=== PATIENT | female | born 1975 | race Caucasian/White ===

== ENCOUNTER → 2016-04-10 | Outpatient (CLI) | payer BC ==
[2016-04-10 12:10] LABS: ANION GAP 8 MEQ/L (8-16); BLOOD UREA NITROGEN 12 MG/DL (7-18); CALCIUM LEVEL 8.7 MG/DL (8.5-10.1); CARBON DIOXIDE LEVEL 32 MEQ/L (21-32); CHLORIDE LEVEL 104 MEQ/L (98-107); CHOLESTEROL LEVEL 182 MG/DL (<200); FREE T4 1.06 NG/DL (0.76-1.46); GLOMERULAR FILTRATION RATE > 60.0 (>58); GLUCOSE, FASTING 87 MG/DL (70-105); POTASSIUM SERUM 3.1 MEQ/L (3.5-5.1); SODIUM LEVEL 144 MEQ/L (136-145); TRIGLYCERIDES LEVEL 168 MG/DL (<150)
== END ==
LOC: M LAB 10:56
PROVIDERS: ATTEND Physician Assistant
DX: I10 Essential (primary) hypertension (principal); E55.9 Vitamin D deficiency, unspecified

== ENCOUNTER → 2016-05-15 | Outpatient (CLI) | payer BC ==
[2016-05-15 13:44] LABS: ANION GAP 10 MEQ/L (8-16); BLOOD UREA NITROGEN 11 MG/DL (7-18); CALCIUM LEVEL 8.7 MG/DL (8.5-10.1); CARBON DIOXIDE LEVEL 31 MEQ/L (21-32); CHLORIDE LEVEL 101 MEQ/L (98-107); CREATININE FOR GFR 1.06 MG/DL (0.55-1.02); GLOMERULAR FILTRATION RATE > 60.0 (>58); GLUCOSE, FASTING 94 MG/DL (70-105); MAGNESIUM LEVEL 2.2 MG/DL (1.8-2.4); POTASSIUM SERUM 3.3 MEQ/L (3.5-5.1); SODIUM LEVEL 142 MEQ/L (136-145)
== END ==
LOC: M SMT 08:39
PROVIDERS: ATTEND Family Medicine
DX: E87.6 Hypokalemia (principal)

== ENCOUNTER → 2016-08-15 | Outpatient (CLI) | payer BC ==
[~2016-08-15] MED LIST: ALBU17IN INH; BREO1INH INH; COLA100C3 PO; CYCL5TA PO; D 1010004 PO; DRIS50002 PO; ERGO500014 PO; ESOM0.1C PO; HYDR12.55 PO; HYDR25TA6 PO; IBUP-1114 PO; IBUP600T26 PO; K-TA1TAB PO; LEXA1TAB PO; OMEP20.64 PO; OXYC1TAB23 PO; TRAM50TA2 PO; ZYRT10CA PO
[2016-08-15 10:18] LABS: BASO # 0.1 K/mm3 (0.0-0.2); BASO % 0.8 % (0.0-1.0); EOS # 0.4 K/mm3 (0.0-0.50); EOS % 3.8 % (0.0-3.0); LARGE UNSTAINED CELL # 0.2 K/mm3 (0.0-0.4); LARGE UNSTAINED CELL % 1.7 % (0.0-4.0); LYMPH # 2.3 K/mm3 (1.5-4.5); MEAN CORPUSCULAR HEMOGLOBIN 29.2 pg (27.0-33.0); MEAN CORPUSCULAR HGB CONC 33.8 g/dl (32.0-36.5); MEAN CORPUSCULAR VOLUME 86.4 fl (80.0-96.0); MONO # 0.5 K/mm3 (0.0-0.8); MONO % 5.4 % (0.0-5.0); NEUTROPHILS % 65.2 % (36.0-66.0); PLATELET COUNT, AUTOMATED 327 k/mm3 (150-450); RED CELL DISTRIBUTION WIDTH 13.1 % (11.5-14.5); WHITE BLOOD COUNT 9.2 K/mm3 (4.0-10.0)
[2016-08-15 10:22] LABS: INR 0.89
[2016-08-15 11:21] LABS: ANION GAP 8 MEQ/L (8-16); BLOOD UREA NITROGEN 13 MG/DL (7-18); CALCIUM LEVEL 8.7 MG/DL (8.5-10.1); CARBON DIOXIDE LEVEL 30 MEQ/L (21-32); CHLORIDE LEVEL 103 MEQ/L (98-107); CREATININE FOR GFR 0.88 MG/DL (0.55-1.02); GLOMERULAR FILTRATION RATE > 60.0 (>58); GLUCOSE, FASTING 93 MG/DL (70-105); POTASSIUM SERUM 3.6 MEQ/L (3.5-5.1); SODIUM LEVEL 141 MEQ/L (136-145)
--- NOTE | 2016-08-15 20:52 | ECGEPIP ---
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
== END ==
LOC: M LAB 09:42
PROVIDERS: ATTEND Physician Assistant
DX: Z01.818 Encounter for other preprocedural examination (principal)

== ENCOUNTER 2016-08-21 09:27 | Day surgery (SDC) | payer BC ==
[2016-08-21] VITALS (7 sets, daily range): BP systolic 103–132; BP diastolic 56–76
[~2016-08-21] VITALS: Ht 172.7 cm; Wt 136.5 kg
[~2016-08-21 09:27] MED LIST changes: -HYDR12.55 PO; +HYDROmorphone HCL 2 MG/ML 1ML VIAL (J1170) As Ordered ONE; +MIDAZOLAM INJ 2 MG/2 ML VIAL (J2250) As Ordered ONE; -OMEP20.64 PO; +ONDANSETRON 4MG/2ML VIAL (J2405) As Ordered ONE; +PROPOFOL 200 MG/20 ML VIAL As Ordered ONE; +ROCURONIUM BROMIDE 50 MG/5 ML VIAL As Ordered ONE; +SUCCINYLCHOLINE 100 MG/5 ML SYRINGE (J0330) As Ordered ONE; +dexameTHASONE 4 MG/ML 1ML VIAL (J1100) As Ordered ONE; +fentaNYL 100 MCG/2 ML INJECTION (J3010) As Ordered ONE
[2016-08-21] MEDS ORDERED: LR 1,000 ML IV ONE (09:45)
[2016-08-21] MEDS ORDERED: LR 1,000 ML IV SCH ×2 (09:45→16:00)
[2016-08-21 10:08] LABS: MEAN CORPUSCULAR HEMOGLOBIN 28.9 pg (27.0-33.0); MEAN CORPUSCULAR HGB CONC 33.5 g/dl (32.0-36.5); MEAN CORPUSCULAR VOLUME 86.5 fl (80.0-96.0); RED CELL DISTRIBUTION WIDTH 13.1 % (11.5-14.5); WHITE BLOOD COUNT 8.3 K/mm3 (4.0-10.0)
[2016-08-21 10:24] LABS: CONTROL LINE HCG INT CTR LINE PRESENT
[2016-08-21] MEDS ORDERED: HYDR12.55 PO (11:00)
[2016-08-21] MEDS ORDERED: OMEP20.64 PO (11:00)
[2016-08-21] MEDS ORDERED: METHYLENE BLUE 0.5% (5MG/ML) 10 ML AMP (PROVAYBLUE)(Q9968 PER 1MG) As Ordered ONE (11:16)
[2016-08-21] MEDS ORDERED: BUPIVACAINE HCL 0.25% 30 ML VIAL As Ordered ONE (11:16)
[2016-08-21] MEDS ORDERED: SCOPOLAMINE 1.5 MG TRANSDERMAL As Ordered ONE (11:18)
[2016-08-21] MEDS ORDERED: SCOPOLAMINE 1.5 MG TRANSDERMAL TOP ONE (11:30)
[2016-08-21] MEDS ORDERED: fentaNYL 100 MCG/2 ML INJECTION (J3010) As Ordered ONE ×2 (11:40→15:20)
[2016-08-21] MEDS ORDERED: ROCURONIUM BROMIDE 50 MG/5 ML VIAL As Ordered ONE (11:59)
[2016-08-21] MEDS ORDERED: NEOSTIGMINE 1MG/ML 5 ML SYRINGE (J2710) As Ordered ONE (12:00)
[2016-08-21] MEDS ORDERED: KETOROLAC 60 MG/2 ML VIAL (J1885) As Ordered ONE (12:00)
[2016-08-21] MEDS ORDERED: GLYCOPYRROLATE INJ 0.2 MG/ML 2 ML VIAL As Ordered ONE (12:00)
[2016-08-21] MEDS ORDERED: SEVOFLURANE INHAL SOLN 250 ML BTL As Ordered ONE (12:30)
[2016-08-21] MEDS ORDERED: MORPHINE 4 MG/ML 1ML SYRINGE IV PRN (15:15)
[2016-08-21] MEDS ORDERED: PERCOCET 5MG/325MG TAB PO PRN (15:15)
[2016-08-21] MEDS ORDERED: PROMETHAZINE INJ 25 MG/ML VIAL (J2550) IV PRN (15:15)
[2016-08-21] MEDS ORDERED: ONDANSETRON 4MG/2ML VIAL (J2405) IV PRN ×2 (15:15→16:15)
[2016-08-21] MEDS: fentaNYL 100 MCG/2 ML INJECTION (J3010) IV PRN ×4 (15:24→15:40)
[2016-08-21] MEDS ORDERED: METOCLOPRAMIDE INJ 10MG/2ML VIAL (J2765) As Ordered ONE (15:41)
[2016-08-21] MEDS ORDERED: MORPHINE 2 MG/ML 1ML SYRINGE IV PRN (16:00)
[2016-08-21] MEDS ORDERED: METOCLOPRAMIDE INJ 10MG/2ML VIAL (J2765) IV PRN (16:15)
[2016-08-21] MEDS: LR 1,000 ML IV SCH (17:39)
[2016-08-21] MEDS: KETOROLAC 30 MG/ML VIAL (J1885) IV SCH (18:40)
[2016-08-21] MEDS ORDERED: ESCITALOPRAM OXALATE 5MG TABLET (LEXAPRO) PO SCH (21:00)
[2016-08-21] MEDS ORDERED: hydroCHLOROthiazide 25 MG TAB PO SCH (21:00)
[2016-08-21] MEDS: DOCUSATE SODIUM 100 MG CAP PO SCH (21:01)
[2016-08-21] MEDS: PERCOCET 5MG/325MG TAB PO PRN (21:02)
[2016-08-22] VITALS: BP 111/73
[2016-08-22] MEDS: LR 1,000 ML IV SCH (00:34)
[2016-08-22] MEDS: PERCOCET 5MG/325MG TAB PO PRN ×3 (00:57→09:17)
[2016-08-22 04:00] VITALS: BP 125/67
[2016-08-22] MEDS: KETOROLAC 30 MG/ML VIAL (J1885) IV SCH ×2 (06:02)
[2016-08-22 08:00] VITALS: BP 131/68
[2016-08-22 08:19] LABS: BASO % 0.3 % (0.0-1.0); EOS # 0.1 K/mm3 (0.0-0.50); EOS % 0.8 % (0.0-3.0); LARGE UNSTAINED CELL # 0.2 K/mm3 (0.0-0.4); LARGE UNSTAINED CELL % 1.2 % (0.0-4.0); LYMPH # 2.1 K/mm3 (1.5-4.5); LYMPH % 13.3 % (24.0-44.0); MEAN CORPUSCULAR HEMOGLOBIN 29.1 pg (27.0-33.0); MEAN CORPUSCULAR HGB CONC 33.2 g/dl (32.0-36.5); MEAN CORPUSCULAR VOLUME 87.8 fl (80.0-96.0); MONO # 0.7 K/mm3 (0.0-0.8); MONO % 4.9 % (0.0-5.0); NEUTROPHILS # 11.6 K/mm3 (1.8-7.7); NEUTROPHILS % 79.5 % (36.0-66.0); PLATELET COUNT, AUTOMATED 316 k/mm3 (150-450); WHITE BLOOD COUNT 14.6 K/mm3 (4.0-10.0)
[2016-08-22 09:17] VITALS: BP 131/68
[2016-08-22] MEDS: DOCUSATE SODIUM 100 MG CAP PO SCH (09:17)
[2016-08-22] MEDS ORDERED: IBUPROFEN 800 MG TAB PO SCH (14:00)
== END 2016-08-22 10:20 | disposition home or self-care (01) ==
LOC: M SDC 09:27 → M PED 16:23 → M SDC 08-22 10:20
PROVIDERS: ATTEND Obstetrics & Gynecology
DX: N93.9 Abnormal uterine and vaginal bleeding, unspecified (principal); R10.2 Pelvic and perineal pain; I10 Essential (primary) hypertension; K21.9 Gastro-esophageal reflux disease without esophagitis; M51.9 Unspecified thoracic, thoracolumbar and lumbosacral intervertebral disc disorder; F32.9 Major depressive disorder, single episode, unspecified; J45.909 Unspecified asthma, uncomplicated; J30.2 Other seasonal allergic rhinitis; R06.83 Snoring; Z79.899 Other long term (current) drug therapy
CPT/HCPCS: 36415; 58571; 84703; 85025; 85027; 86850; 86900; 86901; 88309; A6024; J0330; J0690; J1100; J1170; J1885; J2250; J2405; J2710; J2765; J3010; Q9968

== ENCOUNTER → 2017-01-23 | Outpatient (REF) | payer BC ==
[~2017-01-23] MED LIST changes: -COLA100C3 PO; +COLA100C5 PO; -CYCL5TA PO; +CYCL5TAB PO; +HYDR12.55 PO; -HYDROmorphone HCL 2 MG/ML 1ML VIAL (J1170) As Ordered ONE; +IBUP-1022 PO; -IBUP600T26 PO; -MIDAZOLAM INJ 2 MG/2 ML VIAL (J2250) As Ordered ONE; +OMEP1CAP77 PO; -ONDANSETRON 4MG/2ML VIAL (J2405) As Ordered ONE; -PROPOFOL 200 MG/20 ML VIAL As Ordered ONE; -ROCURONIUM BROMIDE 50 MG/5 ML VIAL As Ordered ONE; -SUCCINYLCHOLINE 100 MG/5 ML SYRINGE (J0330) As Ordered ONE; -dexameTHASONE 4 MG/ML 1ML VIAL (J1100) As Ordered ONE; -fentaNYL 100 MCG/2 ML INJECTION (J3010) As Ordered ONE
[2017-01-23 13:51] LABS: BASO # 0.1 10^3/uL (0.0-0.2); BASO % 0.6 % (0.0-1.0); EOS # 0.2 10^3/uL (0.0-0.50); EOS % 2.3 % (0.0-3.0); IMMATURE GRANULOCYTE % 0.1 % (0-0); LYMPH # 3.5 10^3/uL (1.5-4.5); LYMPH % 38.3 % (24.0-44.0); MEAN CORPUSCULAR HEMOGLOBIN 28.5 pg (27.0-33.0); MEAN CORPUSCULAR HGB CONC 32.2 g/dl (32.0-36.5); MEAN CORPUSCULAR VOLUME 88.7 fl (80.0-96.0); MONO # 0.7 10^3/uL (0.0-0.8); MONO % 7.4 % (0.0-5.0); NEUTROPHILS # 4.8 10^3/uL (1.8-7.7); NEUTROPHILS % 51.3 % (36.0-66.0); PLATELET COUNT, AUTOMATED 377 10^3/uL (150-450); RED CELL DISTRIBUTION WIDTH 12.6 % (11.5-14.5); WHITE BLOOD COUNT 9.3 10^3/uL (4.0-10.0)
[2017-01-23 14:15] LABS: ANION GAP 6 MEQ/L (8-16); BLOOD UREA NITROGEN 9 MG/DL (7-18); CARBON DIOXIDE LEVEL 32 MEQ/L (21-32); CHLORIDE LEVEL 103 MEQ/L (98-107); CREATININE FOR GFR 0.92 MG/DL (0.55-1.02); FREE T4 1.03 NG/DL (0.76-1.46); GLOMERULAR FILTRATION RATE > 60.0 (>58); GLUCOSE, FASTING 72 MG/DL (70-105); SODIUM LEVEL 141 MEQ/L (136-145)
== END ==
LOC: M LABDRWAD 13:29
PROVIDERS: ATTEND Physician Assistant
DX: I10 Essential (primary) hypertension (principal)

== ENCOUNTER → 2018-04-02 | Outpatient (REF) | payer BC ==
[~2018-04-02] MED LIST changes: -DRIS50002 PO; +DRIS50003 PO
[2018-04-02 11:52] LABS: INR 0.91; PROTHROMBIN TIME 12.3 SECONDS (12.1-14.4)
[2018-04-02 12:21] LABS: PARTIAL THROMBOPLASTIN TIME 37.7 SECONDS (25.4-37.6)
== END ==
LOC: M LABDRAW1 11:25
PROVIDERS: ATTEND Physical Medicine & Rehabilitation
DX: Z79.01 Long term (current) use of anticoagulants (principal)

== ENCOUNTER → 2018-04-21 | Outpatient (CLI) | payer BC ==
[2018-04-21 10:38] LABS: ALBUMIN 3.8 GM/DL (3.2-5.2); BILIRUBIN,TOTAL 0.3 MG/DL (0.2-1.0); CALCIUM LEVEL 9.8 MG/DL (8.5-10.1); CHOLESTEROL RISK RATIO 4.152 (<5); CREATININE FOR GFR 1.12 MG/DL (0.55-1.30); FREE T4 1.01 NG/DL (0.76-1.46); GLOMERULAR FILTRATION RATE 56.5 (>58); THYROID STIMULATING HORMONE 0.543 uIU/ML (0.358-3.740); TOTAL PROTEIN 7.6 GM/DL (6.4-8.2)
[2018-04-21 11:50] LABS: TOTAL 25(OH) VITAMIN D 32.2 NG/ML (30.0-100.0)
== END ==
LOC: M LAB 08:53
PROVIDERS: ATTEND Physician Assistant
DX: I10 Essential (primary) hypertension (principal)

== ENCOUNTER 2018-11-21 11:11 | Emergency (ER) | payer BC ==
[~2018-11-21] VITALS: Ht 172.7 cm; Wt 128.7 kg
[~2018-11-21 11:11] MED LIST changes: -ERGO500014 PO; +VITA500045 PO
[2018-11-21] MEDS ORDERED: BREO1INH PO (11:39)
[2018-11-21] MEDS ORDERED: BUPR150T3 PO (11:39)
[2018-11-21] MEDS ORDERED: SIME180C PO (11:39)
[2018-11-21] MEDS ORDERED: MULT1TAB8 PO (11:39)
[2018-11-21] MEDS ORDERED: LOPE1CAP5 PO (11:39)
[2018-11-21] MEDS ORDERED: FLON1SPR NARES (11:39)
[2018-11-21] MEDS ORDERED: TOLT2CAP4 PO (11:39)
[2018-11-21] MEDS ORDERED: CHOL100029 PO (11:39)
[2018-11-21] MEDS ORDERED: ESTR125TA PO (11:39)
[2018-11-21 11:43] LABS: BASO % 0.5 % (0.0-1.0); EOS # 0.1 10^3/uL (0.0-0.5); EOS % 1.9 % (0.0-3.0); HEMATOCRIT 42.8 % (36.0-47.0); HEMOGLOBIN 14.2 g/dl (12.0-15.5); LYMPH # 1.7 10^3/uL (1.5-5.0); LYMPH % 26.2 % (24.0-44.0); MEAN CORPUSCULAR HEMOGLOBIN 28.9 pg (27.0-33.0); MEAN CORPUSCULAR HGB CONC 33.2 g/dl (32.0-36.5); MONO # 0.7 10^3/uL (0.0-0.8); MONO % 11.2 % (0.0-5.0); NEUTROPHILS # 3.9 10^3/uL (1.5-8.5); NEUTROPHILS % 59.9 % (36.0-66.0); PLATELET COUNT, AUTOMATED 351 10^3/uL (150-450); RED BLOOD COUNT 4.92 10^6/uL (4.00-5.40); WHITE BLOOD COUNT 6.4 10^3/uL (4.0-10.0)
[2018-11-21] MEDS ORDERED: ONDANSETRON 4MG/2ML VIAL (J2405) IV ONE (12:00)
[2018-11-21] MEDS ORDERED: NS 1,000 ML IV ONE ×2 (12:00→14:00)
[2018-11-21 12:05] LABS: ALBUMIN 3.4 GM/DL (3.2-5.2); ALT/SGPT 298 U/L (12-78); BILIRUBIN,DIRECT 0.3 MG/DL (0.0-0.2); BILIRUBIN,TOTAL 0.7 MG/DL (0.2-1.0); BLOOD UREA NITROGEN 6 MG/DL (7-18); CALCIUM LEVEL 8.7 MG/DL (8.5-10.1); CARBON DIOXIDE LEVEL 29 MEQ/L (21-32); CHLORIDE LEVEL 108 MEQ/L (98-107); CREATININE FOR GFR 0.92 MG/DL (0.55-1.30); GLOMERULAR FILTRATION RATE > 60.0 (>58); GLUCOSE, FASTING 97 MG/DL (70-100); LIPASE 159 U/L (73-393); POTASSIUM SERUM 3.5 MEQ/L (3.5-5.1); SODIUM LEVEL 143 MEQ/L (136-145); TOTAL PROTEIN 6.7 GM/DL (6.4-8.2)
[2018-11-21] MEDS ORDERED: ISOVUE-370 76% 100ML VIAL (Q9967) As Ordered ONE (13:54)
[2018-11-21] MEDS ORDERED: POTASSIUM CHLORIDE 10 MEQ SR TABLET PO ONE (14:00)
[2018-11-21] MEDS ORDERED: KCL 10MEQ/100ML SWI (KRUN) 10 MEQ in IV 1 EA IV ONE (14:00)
--- NOTE | 2018-11-21 14:26 | REP ---
Clinical: Abdominal pain and diarrhea. Technique: Axial contrast enhanced images from the lung bases to the pubic symphysis with coronal and sagittal re-formations using 100 ml Isovue 370 intravenous contrast material. Delayed images of the abdomen obtained. Comparison: None. Findings: The lung bases are clear. Visualized heart and pericardium normal. The liver demonstrates innumerable hypodense lesions measuring up to approximately 5 cm and consistent with a previous diagnosis of benign hemangiomas. Spleen, pancreas, bilateral adrenal glands are normal. Kidneys demonstrate subcentimeter hypodensities suggesting cysts and 2 mm nonobstructing left renal calculus without perinephric stranding or hydronephrosis. Evidence of prior cholecystectomy. The enteric system is without obstruction or acute inflammatory process although fluid-filled loops of small large bowel are noted which may reflect a mild enterocolitis. Pelvis demonstrates normal bladder and evidence for prior hysterectomy. No ascites. No free air. No adenopathy. Abdominal aorta without aneurysm or dissection. Musculoskeletal structures demonstrate age-related changes without focal abnormality. Impression: 1. Multiple hepatic hemangiomas similar to prior MRI dated 2005. 2. 2 mm nonobstructing left renal calculus and subcentimeter renal cysts. 3. Cannot exclude mild enterocolitis. Electronically Signed by Nathen Hobbs MD 11/21/2018 02:18 P
[2018-11-21] MEDS ORDERED: ONDA4TAB6 PO (15:30)
[2018-11-21 17:11] VITALS: BP 122/73
[2018-11-21] MEDS ORDERED: CIPR-249 PO (17:17)
[2018-11-21] MEDS ORDERED: CIPROFLOXACIN 500 MG TAB PO ONE (18:00)
[2018-11-23 16:00] LABS: HEPATITIS A ANTIBODY IGM NEGATIVE (NEGATIVE); HEPATITIS B CORE ANTIBODY IGM NEGATIVE (NEGATIVE); HEPATITIS B SURFACE ANTIGEN NEGATIVE (NEGATIVE); HEPATITIS C VIRUS ABY INDEX 0.1 INDEX (<0.8)
== END 2018-11-21 17:30 | disposition home or self-care (01) ==
LOC: M ED 11:11
DX: A04.4 Other intestinal Escherichia coli infections (principal); R94.5 Abnormal results of liver function studies; I10 Essential (primary) hypertension; J45.909 Unspecified asthma, uncomplicated; Z79.891 Long term (current) use of opiate analgesic; Z79.899 Other long term (current) drug therapy; Z90.49 Acquired absence of other specified parts of digestive tract; Z86.79 Personal history of other diseases of the circulatory system
CPT/HCPCS: 74177; 80047; 80048; 80076; 81001; 83605; 83690; 85025; 86705; 86709; 86803; 87340; 87507; 96365; 96375; 99284; J2405; Q9967

== ENCOUNTER → 2019-04-30 | Outpatient (CLI) | payer BC ==
[~2019-04-30] MED LIST changes: +BREO1INH PO; +BUPR150T3 PO; +CHOL100029 PO; +CIPR-249 PO; +ESTR125TA PO; +FLON1SPR NARES; +LOPE1CAP5 PO; +MULT1TAB8 PO; +ONDA4TAB6 PO; +SIME180C PO; +TOLT2CAP4 PO
[2019-04-30 16:57] LABS: BASO # 0.1 10^3/uL (0.0-0.2); BASO % 0.7 % (0.0-1.0); EOS # 0.2 10^3/uL (0.0-0.5); EOS % 2.2 % (0.0-3.0); HEMATOCRIT 42.4 % (36.0-47.0); HEMOGLOBIN 13.4 g/dl (12.0-15.5); LYMPH # 2.1 10^3/uL (1.5-5.0); LYMPH % 23.8 % (24.0-44.0); MEAN CORPUSCULAR HEMOGLOBIN 27.8 pg (27.0-33.0); MEAN CORPUSCULAR HGB CONC 31.6 g/dl (32.0-36.5); MONO # 0.6 10^3/uL (0.0-0.8); MONO % 6.8 % (0.0-5.0); NEUTROPHILS # 5.9 10^3/uL (1.5-8.5); NEUTROPHILS % 66.1 % (36.0-66.0); PLATELET COUNT, AUTOMATED 294 10^3/uL (150-450); RED BLOOD COUNT 4.82 10^6/uL (4.00-5.40)
[2019-04-30 17:05] LABS: ALBUMIN 3.4 GM/DL (3.2-5.2); ALT/SGPT 19 U/L (12-78); BILIRUBIN,TOTAL 0.5 MG/DL (0.2-1.0); BLOOD UREA NITROGEN 12 MG/DL (7-18); C REACTIVE PROTEIN QUANTITATIV 1.79 MG/DL (0.00-0.30); CALCIUM LEVEL 8.6 MG/DL (8.5-10.1); CARBON DIOXIDE LEVEL 30 MEQ/L (21-32); CHLORIDE LEVEL 105 MEQ/L (98-107); CHOLESTEROL LEVEL 205 MG/DL (<200); CREATININE FOR GFR 0.88 MG/DL (0.55-1.30); FREE T4 0.98 NG/DL (0.76-1.46); GLOMERULAR FILTRATION RATE > 60.0 (>58); GLUCOSE, FASTING 85 MG/DL (70-100); HDL CHOLESTEROL 50 MG/DL (>40); LDL CHOLESTEROL 128 MG/DL (<100); NON-HDL-C 155 MG/DL; POTASSIUM SERUM 3.9 MEQ/L (3.5-5.1); RHEUMATOID FACTOR QUANT < 10.0 IU/ML (<15.0); SODIUM LEVEL 143 MEQ/L (136-145); TOTAL PROTEIN 6.5 GM/DL (6.4-8.2); TRIGLYCERIDES LEVEL 135 MG/DL (<150)
[2019-04-30 17:12] LABS: HEMOGLOBIN A1c 5.5 %
[2019-04-30 17:45] LABS: ERYTHROCYTE SEDIMENTATION RATE 24 mm/hr (0-20)
[2019-05-04 00:06] LABS: ANA (HEP2) Negative (.); CYCLIC CITRULLINATED PEPTIDE 14 units (0-19)
== END ==
LOC: M ADAMS 12:14
PROVIDERS: ATTEND Physician Assistant
DX: E78.2 Mixed hyperlipidemia (principal); E66.09 Other obesity due to excess calories; A04.0 Enteropathogenic Escherichia coli infection; M54.5 Low back pain; F33.1 Major depressive disorder, recurrent, moderate; R94.5 Abnormal results of liver function studies

== ENCOUNTER → 2019-09-08 | Outpatient (CLI) | payer BC ==
[~2019-09-08] MED LIST changes: +DULO1CAP5 PO; +ESCI10TA2 PO; +GABA-843 PO; +KETO10TAB PO; +KLOR20TA42 PO; +MELO15TA28 PO; +PERC5TAB12 PO
[2019-09-08 10:34] LABS: PLATELET COUNT, AUTOMATED 336 10^3/uL (150-450)
[2019-09-08 10:48] LABS: INR 1.01
[2019-09-08 10:49] LABS: PARTIAL THROMBOPLASTIN TIME 34.1 SECONDS (25.0-38.4)
[2019-09-08 10:58] LABS: COLLAGEN EPINEPHRINE 106 SECONDS (74-162)
== END ==
LOC: M LAB 10:12
PROVIDERS: ATTEND Physical Medicine & Rehabilitation
DX: M47.817 Spondylosis without myelopathy or radiculopathy, lumbosacral region (principal)

== ENCOUNTER 2019-12-03 05:41 | Emergency (ER) | payer BC ==
[~2019-12-03] VITALS: Ht 172.7 cm; Wt 142.2 kg
[~2019-12-03 05:41] MED LIST changes: -DULO1CAP5 PO; -ESCI10TA2 PO; -GABA-843 PO; -KETO10TAB PO; -KLOR20TA42 PO; -MELO15TA28 PO; -PERC5TAB12 PO
[2019-12-03] MEDS ORDERED: ESCI10TA2 PO (06:03)
[2019-12-03] MEDS ORDERED: DULO1CAP5 PO (06:03)
[2019-12-03] MEDS ORDERED: MELO15TA28 PO (06:03)
[2019-12-03] MEDS ORDERED: GABA-843 PO (06:03)
[2019-12-03] MEDS ORDERED: KLOR20TA42 PO (06:03)
[2019-12-03] MEDS ORDERED: KETOROLAC 30 MG/ML 1ML VIAL IV ONE (06:15)
[2019-12-03] MEDS ORDERED: NS 1,000 ML IV ONE (06:15)
[2019-12-03] MEDS ORDERED: ONDANSETRON 4MG/2ML VIAL IV ONE (06:15)
[2019-12-03 06:28] LABS: BASO # 0.1 10^3/uL (0.0-0.2); BASO % 0.4 % (0.0-1.0); EOS # 0.1 10^3/uL (0.0-0.5); EOS % 0.3 % (0.0-3.0); HEMATOCRIT 43.1 % (36.0-47.0); HEMOGLOBIN 13.9 g/dl (12.0-15.5); LYMPH # 1.6 10^3/uL (1.5-5.0); LYMPH % 10.3 % (24.0-44.0); MEAN CORPUSCULAR HEMOGLOBIN 28.7 pg (27.0-33.0); MEAN CORPUSCULAR HGB CONC 32.3 g/dl (32.0-36.5); MONO # 0.7 10^3/uL (0.0-0.8); MONO % 4.7 % (0.0-5.0); NEUTROPHILS # 12.9 10^3/uL (1.5-8.5); NEUTROPHILS % 83.5 % (36.0-66.0); PLATELET COUNT, AUTOMATED 326 10^3/uL (150-450); RED BLOOD COUNT 4.84 10^6/uL (4.00-5.40); WHITE BLOOD COUNT 15.5 10^3/uL (4.0-10.0)
[2019-12-03 06:54] LABS: BLOOD UREA NITROGEN 11 MG/DL (7-18); CALCIUM LEVEL 9.4 MG/DL (8.5-10.1); CARBON DIOXIDE LEVEL 29 MEQ/L (21-32); CHLORIDE LEVEL 99 MEQ/L (98-107); CREATININE FOR GFR 1.02 MG/DL (0.55-1.30); GLOMERULAR FILTRATION RATE > 60.0 (>58); GLUCOSE, FASTING 100 MG/DL (70-100); POTASSIUM SERUM 3.8 MEQ/L (3.5-5.1); SODIUM LEVEL 134 MEQ/L (136-145)
--- NOTE | 2019-12-03 07:36 | REPVR ---
PROCEDURE INFORMATION: Exam: CT Abdomen And Pelvis Without Contrast Exam date and time: 12/03/2019 6:29 AM Age: 44 years old Clinical indication: Abdominal pain; Flank; Left; Additional info: Left flank pain, renal colic TECHNIQUE: Imaging protocol: Computed tomography of the abdomen and pelvis without contrast. Radiation optimization: All CT scans at this facility use at least one of these dose optimization techniques: automated exposure control; mA and/or kV adjustment per patient size (includes targeted exams where dose is matched to clinical indication); or iterative reconstruction. COMPARISON: CT ABD/PEL W/IV CONTRAST ONLY 11/21/2018 1:56 PM FINDINGS: Liver: Hepatomegaly and steatosis. Ill-defined right hepatic lobe low-attenuation lesion can be further assessed with dedicated liver protocol CT or MRI. Gallbladder and bile ducts: Status post cholecystectomy. Pancreas: Normal. No ductal dilation. Spleen: Normal. No splenomegaly. Adrenals: Normal. No mass. Kidneys and ureters: Mild left hydroureteronephrosis to the level of a 4 mm calculus distal left ureter. Nonobstructive left nephrolithiasis. Extensive left perinephric stranding. Stomach and bowel: Unremarkable. No obstruction. No mucosal thickening. Appendix: No evidence of appendicitis. Intraperitoneal space: Unremarkable. No free air. No significant fluid collection. Vasculature: Unremarkable. No abdominal aortic aneurysm. Lymph nodes: Unremarkable. No enlarged lymph nodes. Bladder: Unremarkable as visualized. Reproductive: Lobulated cystic left adnexal lesion can be further assessed with pelvic ultrasound if warranted. 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 Soft tissues: Fat containing umbilical hernia. IMPRESSION: Mild left hydroureteronephrosis to the level of a 4 mm calculus distal left ureter. Hepatomegaly and steatosis. Ill-defined right hepatic lobe low-attenuation lesion can be further assessed with dedicated liver protocol CT or MRI. Lobulated cystic left adnexal lesion can be further assessed with pelvic ultrasound if warranted. Electronically signed by: Tam Bermudez On 12/03/2019 07:36:33 AM
[2019-12-03] MEDS ORDERED: PERCOCET 5MG/325MG TAB PO ONE (08:00)
[2019-12-03] MEDS ORDERED: ONDA4TAB6 PO (08:05)
[2019-12-03] MEDS ORDERED: KETO10TAB PO (08:05)
[2019-12-03] MEDS ORDERED: PERC5TAB12 PO (08:05)
[2019-12-03 09:00] VITALS: BP 131/74
--- NOTE | 2019-12-04 07:46 | ED PDOC ---
Post-Departure Follow-Up radiology report faxed to Fara Cadet MD Dec 04, 2019 07:46
== END 2019-12-03 09:20 | disposition home or self-care (01) ==
LOC: M ED 05:41
DX: N20.1 Calculus of ureter (principal); N13.30 Unspecified hydronephrosis; K76.89 Other specified diseases of liver; I10 Essential (primary) hypertension; J45.909 Unspecified asthma, uncomplicated; F32.9 Major depressive disorder, single episode, unspecified
CPT/HCPCS: 74176; 80048; 81001; 85025; 96361; 96374; 96375; 99284; J1885; J2405

== ENCOUNTER → 2020-03-08 | Outpatient (CLI) | payer OTHER ==
[~2020-03-08] MED LIST changes: +DULO1CAP5 PO; +ESCI10TA2 PO; +GABA-843 PO; +KETO10TAB PO; +KLOR20TA42 PO; +MELO15TA28 PO; +PERC5TAB12 PO
== END ==
LOC: M LABSMTC 10:30
PROVIDERS: ATTEND Physical Medicine & Rehabilitation
DX: Z01.812 Encounter for preprocedural laboratory examination (principal); Z20.828 Contact with and (suspected) exposure to other viral communicable diseases

== ENCOUNTER → 2022-03-01 | Outpatient (CLI) | payer OTHER ==
[~2022-03-01] MED LIST changes: +BUPR150T12 PO; -BUPR150T3 PO; +ESCI10TA16 PO; -ESCI10TA2 PO; +GABA-282 PO; -GABA-843 PO; -KLOR20TA42 PO; +POTA-141 PO; -SIME180C PO; +SIME180C25 PO
== END ==
LOC: M WHC 10:25
PROVIDERS: ATTEND Physical Therapist
DX: Z12.31 Encounter for screening mammogram for malignant neoplasm of breast (principal)

== ENCOUNTER → 2023-01-21 | Outpatient (REF) | payer BC, OTHER | LOC: M SFHCWAGY 17:55 | PROVIDERS: ATTEND Obstetrics & Gynecology | DX: Z12.72 Encounter for screening for malignant neoplasm of vagina (principal) | CPT/HCPCS: 87624; G0123 ==